=== PATIENT | female | born 1995 | race Caucasian/White ===

== ENCOUNTER 2020-06-25 11:37 | Emergency (ER) | payer OTHER, SELFPAY ==
[~2020-06-25] VITALS: Ht 154.9 cm; Wt 62.3 kg
[2020-06-25 11:47] VITALS: BP 124/89
== END 2020-06-25 12:05 | disposition home or self-care (01) ==
LOC: ED 12:00
DX: U07.1 COVID-19 (principal)
CPT/HCPCS: 87635; 99283